=== PATIENT | female | born 1995 | race African-American/Black ===

== ENCOUNTER 2022-01-29 19:38 | Emergency (ER) | payer SELFPAY ==
[~2022-01-29] VITALS: Ht 157.5 cm; Wt 60.0 kg
[2022-01-29 19:50] VITALS: BP 95/52
== END 2022-01-29 23:49 | disposition left against medical advice (07) ==
LOC: ER 19:38
DX: Z53.21 Procedure and treatment not carried out due to patient leaving prior to being seen by health care provider (principal)